=== PATIENT | male | born 1985 | race Caucasian/White ===

== ENCOUNTER 2024-06-15 07:26 | Emergency (ER) | payer OTHER ==
[~2024-06-15] VITALS: Ht 175.3 cm; Wt 89.8 kg
[2024-06-15 07:59] VITALS: BP 126/88; TEMP 98; O2SAT 98
[2024-06-15] MEDS ORDERED: NAPR-1164 PO (10:10)
== END 2024-06-15 10:13 | disposition home or self-care (01) ==
LOC: ER 07:36
DX: M24.412 Recurrent dislocation, left shoulder (principal)
CPT/HCPCS: 73030-TC